=== PATIENT | male | born 1955 | race Native Hawaiian/Other Pacific Islander ===

== ENCOUNTER 2018-03-09 23:16 | Emergency (ER) | payer SELFPAY ==
[2018-03-09 23:31] VITALS: BP 151/73
[2018-03-10] MEDS ORDERED: BENADRYL PO ONE (01:04)
[2018-03-10] MEDS ORDERED: REGLAN PO ONE (01:04)
[2018-03-10] MEDS ORDERED: DELTASONE PO ONE (01:04)
--- NOTE | 2018-03-10 02:02 | Emergency Department Report ---
- General Chief complaint: Skin Rash Stated complaint: BURNING OF THIGH Time Seen by Provider: 03/10/18 01:03 Source: patient Mode of arrival: Ambulatory Limitations: No Limitations - History of Present Illness Initial comments: Patient is a 62-year-old male who presents for rash isn't after increasing his allopurinol dosing for gout control states is typical last 2-3 days rash. Raised papular patient denies shortness of breath no dizziness no nausea vomiting no chest pain has not taken [id number] Benadryl and has contacted PCP for change in medication MD complaint: rash Onset/Timin -: Sudden, days(s) Severity: moderate Severity scale (0 -10): 3 Quality: burning Consistency: intermittent Improves with: medication Worsens with: medication Context: none Associated symptoms: itching, myalgias Treatments Prior to Arrival: none - Related Data Previous Rx's Medication Instructions Recorded Last Taken Type Famotidine [Pepcid] 20 mg PO BID PRN #60 tablet 03/10/18 Unknown Rx diphenhydrAMINE [Benadryl CAP] 25 mg PO Q6HR PRN #60 capsule 03/10/18 Unknown Rx predniSONE [Deltasone] 40 mg PO QDAY 5 Days #10 tab 03/10/18 Unknown Rx Allergies Allergy/AdvReac Type Severity Reaction Status Date / Time NSAIDS (Non-Steroidal Allergy Unknown Verified 03/09/18 23:33 Anti-Inflamma pistachio nut Allergy Unknown Verified 03/09/18 23:33 shellfish derived Allergy Unknown Verified 03/09/18 23:33 Abscess Boil HPI - HPI Chief Complaint: Skin Rash Stated Complaint: BURNING OF THIGH Time Seen by Provider: 03/10/18 01:03 Home Medications: Previous Rx's Medication Instructions Recorded Last Taken Type Famotidine [Pepcid] 20 mg PO BID PRN #60 tablet 03/10/18 Unknown Rx diphenhydrAMINE [Benadryl CAP] 25 mg PO Q6HR PRN #60 capsule 03/10/18 Unknown Rx predniSONE [Deltasone] 40 mg PO QDAY 5 Days #10 tab 03/10/18 Unknown Rx Allergies/Adverse Reactions: Allergies Allergy/AdvReac Type Severity Reaction Status Date / Time NSAIDS (Non-Steroidal Allergy Unknown Verified 03/09/18 23:33 Anti-Inflamma pistachio nut Allergy Unknown Verified 03/09/18 23:33 shellfish derived Allergy Unknown Verified 03/09/18 23:33 ED Review of Systems ROS: Stated complaint: BURNING OF THIGH Other details as noted in HPI Constitutional: denies: chills, fever Eyes: denies: eye pain, eye discharge, vision change ENT: denies: ear pain, throat pain Respiratory: denies: cough, shortness of breath, wheezing Cardiovascular: denies: chest pain, palpitations Endocrine: no symptoms reported Gastrointestinal: denies: abdominal pain, nausea, diarrhea Genitourinary: denies: urgency, dysuria Musculoskeletal: denies: back pain, joint swelling, arthralgia Skin: rash Neurological: denies: headache, weakness, paresthesias Psychiatric: denies: anxiety, depression Hematological/Lymphatic: denies: easy bleeding, easy bruising ED Past Medical Hx - Past Medical History Previous Medical History?: Yes Hx Arthritis: Yes (gout) - Surgical History Past Surgical History?: Yes Hx Appendectomy: Yes - Social History Smoking Status: Never Smoker Substance Use Type: None - Medications Home Medications: Home Medications Medication Instructions Recorded Confirmed Last Taken Type Famotidine [Pepcid] 20 mg PO BID PRN #60 tablet 03/10/18 Unknown Rx diphenhydrAMINE [Benadryl CAP] 25 mg PO Q6HR PRN #60 capsule 03/10/18 Unknown Rx predniSONE [Deltasone] 40 mg PO QDAY 5 Days #10 tab 03/10/18 Unknown Rx ED Physical Exam - General Limitations: No Limitations General appearance: alert, in no apparent distress - Head Head exam: Present: atraumatic, normocephalic - Eye Eye exam: Present: normal appearance - ENT ENT exam: Present: mucous membranes moist - Neck Neck exam: Present: normal inspection - Respiratory Respiratory exam: Present: normal lung sounds bilaterally. Absent: respiratory distress - Cardiovascular Cardiovascular Exam: Present: regular rate, normal rhythm. Absent: systolic murmur, diastolic murmur, rubs, gallop - GI/Abdominal GI/Abdominal exam: Present: soft, normal bowel sounds - Rectal Rectal exam: Present: deferred - Extremities Exam Extremities exam: Present: normal inspection - Back Exam Back exam: Present: normal inspection - Neurological Exam Neurological exam: Present: alert, oriented X3 - Psychiatric Psychiatric exam: Present: normal affect, normal mood - Skin Skin exam: Present: dry, normal color, rash, erythema, urticaria ED Course Vital Signs 03/09/18 23:26 Temperature 97.6 F Pulse Rate 68 Respiratory 20 Rate Blood Pressure 151/73 O2 Sat by Pulse 96 Oximetry ED Medical Decision Making - Medical Decision Making This is an allergic dermatitis symptoms improvement after decreasing allopurinol plan Benadryl Reglan prednisone patient will follow up with PCP in 2 -3 days for medication change there is no gout flare this time patient verbalizes agreement and understanding the discharge plan Critical care attestation.: If time is entered above; I have spent that time in minutes in the direct care of this critically ill patient, excluding procedure time. ED Disposition Clinical Impression: Allergic dermatitis Disposition: - TO HOME OR SELFCARE Is pt being admited?: No Does the pt Need Aspirin: No Condition: Stable Instructions: Allergies (ED) Prescriptions: diphenhydrAMINE [Benadryl CAP] 25 mg PO Q6HR PRN #60 capsule PRN Reason: allergies Famotidine [Pepcid] 20 mg PO BID PRN #60 tablet PRN Reason: allergies predniSONE [Deltasone] 40 mg PO QDAY 5 Days #10 tab Referrals: PRIMARY CARE, [Primary Care Provider] - 3-5 Days Forms: Work/School Release Form(ED) Time of Disposition: 02:08
== END 2018-03-10 02:15 | disposition home or self-care (01) ==
LOC: ED 23:16
DX: L23.9 Allergic contact dermatitis, unspecified cause (principal); M19.90 Unspecified osteoarthritis, unspecified site; Z90.89 Acquired absence of other organs; Z88.6 Allergy status to analgesic agent; Z91.013 Allergy to seafood; Z91.010 Allergy to peanuts
CPT/HCPCS: 99282; J7512